=== PATIENT | female | born 1960 | race African-American/Black ===

== ENCOUNTER 2016-09-16 13:29 | Inpatient (IN) | payer MEDICAID ==
[~2016-09-16] VITALS: Ht 175.3 cm; Wt 167.6 kg
[2016-09-16] MEDS ORDERED: KETOROLAC TROMETHAMINE 30 MG/ML VIAL IVP ONE (14:30)
[2016-09-16 15:25] LABS: BASOPHILS # (AUTO) 0.05 K/uL (0.00-0.20); BASOPHILS % (AUTO) 0.9 % (0.0-2.0); EOSINOPHILS # (AUTO) 0.16 K/uL (0.00-0.70); EOSINOPHILS % (AUTO) 2.56 % (1.0-6.0); HEMATOCRIT 29.4 % (36-46); LYMPHOCYTES # (AUTO) 1.6 K/uL (1.0-4.8); LYMPHOCYTES % (AUTO) 25.5 % (22.0-44.0); MEAN CORPUSCULAR HEMOGLOBIN 23.3 pg (26.0-34.0); MEAN CORPUSCULAR HGB CONC 30.7 G/dL (31.0-37.0); MEAN CORPUSCULAR VOLUME 76 fL (80-100); MONOCYTES # (AUTO) 0.6 K/uL (0.1-1.0); MONOCYTES % (AUTO) 9.2 % (2.0-9.0); NEUTROPHILS # (AUTO) 3.8 K/uL (1.8-7.7); NEUTROPHILS % (AUTO) 61.8 % (40.0-70.0); PLATELET COUNT (AUTO) 364 K/uL (150-450); RED BLOOD CELL COUNT(AUTO) 3.86 MIL/uL (4.00-5.20); RED CELL DISTRIBUTION WIDTH 20.1 % (11.5-14.5); WHITE BLOOD COUNT (AUTO) 6.1 K/uL (4.5-11.0)
[2016-09-16 15:41] LABS: ANION GAP 5 mmol/L (8-16); CALCIUM, TOTAL 8.3 mg/dL (8.8-10.5); CARBON DIOXIDE 29 mmol/L (22-29); CHLORIDE 107 mmol/L (98-107); CREATININE 0.71 mg/dL (0.60-1.30); GLOMERULAR FILTR. RATE CALC > 60 mL/min (>60); POTASSIUM 4.1 mmol/L (3.5-5.1); SODIUM SERUM 141 mmol/L (136-145); UREA NITROGEN, BLOOD 4 mg/dL (7-18)
[2016-09-16 15:49] LABS: RBC MORPHOLOGY COMMENT ABNORMAL RBC MORPH
[2016-09-16 15:50] LABS: INR 0.9 (0.9-1.1)
[2016-09-16 15:56] LABS: B-TYPE NATRIURETIC PEPTIDE 491 pg/mL (0-100)
[2016-09-16 16:05] LABS: ALANINE AMINOTRANSFERASE 22 U/L (12-78); ALBUMIN 2.7 g/dL (3.4-5.0); ASPARTATE AMINOTRANSFERASE 14 U/L (15-37); BILIRUBIN,TOTAL 0.3 mg/dL (0.1-1.0); CREATINE KINASE, TOTAL 91 U/L (26-192); TOTAL PROTEIN, SERUM 6.7 g/dL (6.4-8.2)
[2016-09-16 16:08] LABS: CREATINE KINASE MB < 0.5 ng/mL (0-5)
[2016-09-16] MEDS ORDERED: FUROSEMIDE 40 MG/4 ML VIAL IVP ONE (16:30)
[2016-09-16] MEDS ORDERED: HYDROmorphone 2 MG/ML SYRINGE IVP ONE (16:30)
[2016-09-16] MEDS ORDERED: ONDANSETRON HCL 4 MG/2 ML VIAL IVP ONE (16:30)
[2016-09-16] MEDS ORDERED: IOVERSOL 350 MG/ML 150 ML VIAL ONE (17:00)
[2016-09-16] MEDS ORDERED: SODIUM CHLORIDE 0.9% 100 ML ONE (17:00)
[2016-09-16] MEDS ORDERED: IOVERSOL 350 MG/ML 50 ML VIAL ONE (17:30)
[2016-09-16] MEDS ORDERED: LORazepam 2 MG/ML VIAL IVP ONE (18:00)
[2016-09-16] MEDS ORDERED: ONDANSETRON HCL 4 MG/2 ML VIAL IVP PRN (20:30)
[2016-09-16] MEDS ORDERED: ACETAMINOPHEN 325 MG TABLET PO PRN ×2 (20:30→21:45)
[2016-09-16] MEDS ORDERED: 0.9% SODIUM CHLORIDE 10 ML SYRINGE IVP PRN (20:30)
[2016-09-16 21:27] VITALS: BP 163/95
[2016-09-16] MEDS ORDERED: MAGNESIUM HYDROXIDE SUSPENSION 30 ML UDCUP PO PRN (21:45)
[2016-09-16] MEDS ORDERED: ALBUTEROL SULFATE 2.5 MG/0.5 ML NEB SOLUTION NEB PRN (21:45)
[2016-09-16] MEDS: ZOLPIDEM TARTRATE 5 MG TABLET PO PRN (22:49)
[2016-09-16] MEDS: OxyCODONE HCL/ACETAMINOPHEN 5-325 MG TABLET PO PRN (22:50)
[2016-09-16] MEDS ORDERED: PNEUMOCOCCAL VACCINE POLYVALENT 0.5 ML VIAL [PPSV23] IM ONE (23:00)
[2016-09-16 23:26] VITALS: BP 164/101
[2016-09-17] MEDS: HEPARIN SODIUM,PORCINE 5,000 UNITS/ML VIAL SQ SCH ×3 (00:19→16:44)
[2016-09-17 04:34] VITALS: BP 120/70
[2016-09-17 05:48] LABS: BASOPHILS # (AUTO) 0.05 K/uL (0.00-0.20); BASOPHILS % (AUTO) 1.1 % (0.0-2.0); EOSINOPHILS # (AUTO) 0.21 K/uL (0.00-0.70); EOSINOPHILS % (AUTO) 4.23 % (1.0-6.0); LYMPHOCYTES # (AUTO) 1.5 K/uL (1.0-4.8); LYMPHOCYTES % (AUTO) 30.8 % (22.0-44.0); MEAN CORPUSCULAR HGB CONC 31.1 G/dL (31.0-37.0); MEAN CORPUSCULAR VOLUME 77 fL (80-100); MONOCYTES # (AUTO) 0.5 K/uL (0.1-1.0); MONOCYTES % (AUTO) 9.9 % (2.0-9.0); NEUTROPHILS # (AUTO) 2.7 K/uL (1.8-7.7); PLATELET COUNT (AUTO) 325 K/uL (150-450); RED BLOOD CELL COUNT(AUTO) 3.77 MIL/uL (4.00-5.20); RED CELL DISTRIBUTION WIDTH 20.1 % (11.5-14.5); WHITE BLOOD COUNT (AUTO) 4.9 K/uL (4.5-11.0)
[2016-09-17 06:04] LABS: ALANINE AMINOTRANSFERASE 21 U/L (12-78); ALBUMIN 2.6 g/dL (3.4-5.0); ANION GAP 2 mmol/L (8-16); ASPARTATE AMINOTRANSFERASE 15 U/L (15-37); BILIRUBIN,TOTAL 0.3 mg/dL (0.1-1.0); CALCIUM, TOTAL 7.9 mg/dL (8.8-10.5); CARBON DIOXIDE 32 mmol/L (22-29); CHLORIDE 106 mmol/L (98-107); CREATININE 0.91 mg/dL (0.60-1.30); GLOMERULAR FILTR. RATE CALC > 60 mL/min (>60); POTASSIUM 4.1 mmol/L (3.5-5.1); SODIUM SERUM 140 mmol/L (136-145); TOTAL PROTEIN, SERUM 6.6 g/dL (6.4-8.2); UREA NITROGEN, BLOOD 6 mg/dL (7-18)
[2016-09-17 07:34] VITALS: BP 133/78
[2016-09-17 08:08] LABS: RBC MORPHOLOGY COMMENT ABNORMAL RBC MORPH
[2016-09-17] MEDS: FUROSEMIDE 20 MG TABLET PO SCH (08:08)
[2016-09-17] MEDS: ASPIRIN 81 MG CHEWABLE TABLET PO SCH (08:08)
[2016-09-17] MEDS: PANTOPRAZOLE SODIUM 40 MG DR TABLET PO SCH (08:08)
[2016-09-17] MEDS: DOCUSATE SODIUM 100 MG CAPSULE PO SCH ×2 (08:09→20:35)
[2016-09-17 11:10] VITALS: BP 130/68
[2016-09-17] MEDS: OxyCODONE HCL/ACETAMINOPHEN 5-325 MG TABLET PO PRN ×2 (14:26→20:36)
[2016-09-17 15:52] VITALS: BP 124/77
[2016-09-17] MEDS: FERROUS SULFATE 325 MG EC TABLET PO SCH (18:05)
[2016-09-17 19:56] VITALS: BP 133/76
[2016-09-17] MEDS ORDERED: ATORVASTATIN CALCIUM 20 MG TABLET PO SCH (21:00)
[2016-09-18] VITALS: BP 134/84
[2016-09-18] MEDS: ZOLPIDEM TARTRATE 5 MG TABLET PO PRN (00:01)
[2016-09-18 05:22] VITALS: BP 135/73
[2016-09-18 07:21] VITALS: BP 154/92
[2016-09-18] MEDS: FERROUS SULFATE 325 MG EC TABLET PO SCH (07:44)
[2016-09-18] MEDS: PANTOPRAZOLE SODIUM 40 MG DR TABLET PO SCH (07:45)
[2016-09-18] MEDS: DOCUSATE SODIUM 100 MG CAPSULE PO SCH (07:45)
[2016-09-18] MEDS: ASPIRIN 81 MG CHEWABLE TABLET PO SCH (07:45)
[2016-09-18] MEDS: FUROSEMIDE 20 MG TABLET PO SCH (07:45)
[2016-09-18] MEDS: HEPARIN SODIUM,PORCINE 5,000 UNITS/ML VIAL SQ SCH ×2 (07:45)
[2016-09-18] MEDS: OxyCODONE HCL/ACETAMINOPHEN 5-325 MG TABLET PO PRN (07:46)
[2016-09-18] MEDS ORDERED: 0.9% SODIUM CHLORIDE 5 ML NEB SOLUTION NEB ONE (08:28)
[2016-09-18] MEDS ORDERED: FERR-89 PO (11:03)
[2016-09-18] MEDS ORDERED: POTA8CAP10 PO (11:04)
[2016-09-18] MEDS ORDERED: ATOR20TA86 PO (11:04)
[2016-09-18] MEDS ORDERED: ASPI81TA2 PO (11:05)
[2016-09-18] MEDS ORDERED: FURO20 PO (11:05)
[2016-09-18] MEDS ORDERED: LISI-661 PO (11:06)
[2016-09-18 11:10] VITALS: BP 157/87
== END 2016-09-18 14:30 | disposition home or self-care (01) | DRG 194 ==
LOC: EMS 13:30 → 5S 17:11
PROVIDERS: ADMIT Internal Medicine; ATTEND Internal Medicine
DX: I50.21 Acute systolic (congestive) heart failure (principal); Z68.43 Body mass index [BMI] 50.0-59.9, adult; E66.01 Morbid (severe) obesity due to excess calories; F12.90 Cannabis use, unspecified, uncomplicated; D64.9 Anemia, unspecified; Z53.29 Procedure and treatment not carried out because of patient's decision for other reasons; Z79.82 Long term (current) use of aspirin; Z28.21 Immunization not carried out because of patient refusal
CPT/HCPCS: 71275; 76700; 85379; 93005; 93306; 94640; 96374; 96375; 99285; J1170; J1644; J1885; J1940; J2060; J2405; J7050